=== PATIENT | female | born 1940 | race Caucasian/White ===

== ENCOUNTER 2017-11-13 16:54 | Emergency (ER) | payer OTHER ==
[~2017-11-13] VITALS: Ht 152.4 cm; Wt 68.0 kg
[~2017-11-13 16:54] MED LIST: ACETAMINOPHEN-1 EAC1 PO; AMLODIPINE BESY10 MG PO; CELEXA 20 MG TA20 M1 PO; CELEXA 20 MG TA20 MG PO; CIPROFLOXACIN500 M1 PO; CIPROFLOXACIN500 M3 PO; CLONIDINE HCL0.2 M2 PO; FLAGYL500 MG PO; LASIX 40 MG TAB40 M2 PO; LEVOTHYROXINE0.05 MG PO; OXYCODONE HCL10 M1 PO; PERCOCET PO; PROTONIX40 M1 PO; SIMVASTATIN40 MG PO; TRIAMTERENE-HC1 EAC3 PO; ULTRAM 50MG TAB50 MG PO; ZOFRAN4 MG PO
== END 2017-11-13 18:41 | disposition home or self-care (01) ==
LOC: ER 16:54
DX: S62.306A Unspecified fracture of fifth metacarpal bone, right hand, initial encounter for closed fracture (principal); I10 Essential (primary) hypertension; G89.29 Other chronic pain; Z98.890 Other specified postprocedural states; W01.0XXA Fall on same level from slipping, tripping and stumbling without subsequent striking against object, initial encounter; Y93.89 Activity, other specified; Y92.89 Other specified places as the place of occurrence of the external cause; Y99.8 Other external cause status; Z88.6 Allergy status to analgesic agent

== ENCOUNTER → 2019-02-10 | Outpatient (CLI) | payer OTHER | LOC: RAD 14:49 | DX: M51.36 Other intervertebral disc degeneration, lumbar region (principal); Z98.890 Other specified postprocedural states ==